=== PATIENT | female | born 1995 | race Caucasian/White ===

== ENCOUNTER 2025-04-30 20:04 | Emergency (ER) | payer OTHER ==
[~2025-04-30] VITALS: Ht 154.9 cm; Wt 69.0 kg
[2025-04-30 20:08] VITALS: TEMP 97.7
[2025-04-30 20:26] LABS: MEAN PLATELET VOLUME 7.3 FL (7.4-10.4); RED CELL DISTRIBUTION WIDTH 12.5 % (11.5-14.5)
--- NOTE | 2025-04-30 20:46 | Physician Documentation ---
History of Present Illness ~ Chief Complaint: Anxiety Stated Complaint: MULTIPLE ISSUES Time Seen by MD: 20:21 OK to notify your PCP?: Yes Source: patient, RN/MD, RN notes reviewed, old records Mode of Arrival: POV Exam Limitations: no limitations HPI 30 year old female with history of bipolar disorder seen in bed 14 presents to the emergency department for complaints of a caffeine overdose. She states that she has consumed 1000mg of caffeine in the past 24 hours. She states that she is addicted and her last drink was an hour prior to her arrival today. She states she is having palpitations, muscle spasms, and dizziness as well as disorganized thoughts. She states that [employer] told her that she was suffering from caffeine exposure. Medication Reconciliation Allergies: Coded Allergies: No Known Allergies (Unverified , 04/30/25) Past Medical History Past Medical History: Fibromyalgia, Bipolar Past Surgical History: noncontributory, gastric bypass, other Smoking Status: Never smoker Review of Systems All Other Systems at this time: Reviewed and Negative ROS As stated above in the HPI, otherwise all systems are reviewed and negative. Physical Exam Vital Signs: RN Vital Signs have been reviewed: Yes, Temperature: 97.7, Source: Temporal, Heart Rate: 69, Respiratory Rate: 16, BP: 139/80, Pulse Oximetry: 100, Weight: 69.000 Oxygen Flow Rate: 0 Pulse Oximetry Reflects: adequate oxygenation Physical Exam General: The patient is well developed, well nourished, nontoxic appearing and is in no acute distress. Skin: [place], warm and dry with no rashes. HEENT: Head was normocephalic and atraumatic. Eyes - pupils equal, round, reactive to light and accommodation. Extraocular movements were intact. Conjunctivae were nonicteric. Ears - bilateral tympanic membranes were normal. The mouth and oropharynx were clear with moist mucous membranes. There were no pharyngeal exudates or erythema. Neck: Supple and nontender. There was no jugular venous distention, lymphadenopathy, thyromegaly or masses. Chest: Clear to auscultation bilaterally without wheezes, rales or rhonchi. No accessory muscle use. No dullness to percussion. Heart: Rate regular and rhythmic. S1, S2. No murmurs. Palpation of the chest wall was normal. No rubs or thrills. Abdomen: Soft, nontender and nondistended. Positive bowel sounds. No guarding or rebound. No hepatosplenomegaly or palpable masses. Extremities: No cyanosis, clubbing or edema. The patient moves all extremities. Pulses were equal and symmetric. Neurologic: Cranial nerves II-XII were intact. Sensation was intact to light touch throughout. Motor strength was 5/5 in all four extremities. Deep tendon reflexes were intact in both upper and lower extremities. Psychologic: The patient was oriented to person, place and time. The patient demonstrated appropriate judgement and insight. Progress Results/Orders Reviewed/noted all lab results: Yes Results/Orders Orders - COLBY RAYMOND MD Chest,Single View (04/30/25 20:44) Monitor (04/30/25 20:15) Saline Lock (04/30/25 20:15) Oxygen (04/30/25 20:15) Hs Troponin I W Calculations (04/30/25 22:15) Hs Troponin I W Calculations (04/30/25 23:15) Completed Orders - COLBY RAYMOND MD Chest,Single View (04/30/25 20:44) Cbc/Diff (04/30/25 20:15) BMP (04/30/25 20:15) PBNP (04/30/25 20:15) Electrocardiogram (04/30/25 20:15) Hs Troponin I W Calculations (04/30/25 20:15) Drug Screen, Urine (04/30/25 20:25) Normal Saline 1000ml (0.9% Sodium Chlori (04/30/25 20:45) MG (04/30/25 20:21) Vital Signs 04/30/25 04/30/25 04/30/25 04/30/25 20:08 21:39 21:46 23:13 Temp 97.7 Pulse 69 86 58 Resp 16 12 16 18 B/P (MAP) 139/80 110/83 (92) 129/84 Pulse Ox 100 100 100 O2 Flow Rate 0 Laboratory Tests Test 04/30/25 20:21 04/30/25 21:16 White Blood Count 8.1 Red Blood Count 4.17 L Hemoglobin 13.4 Hematocrit 39.2 Mean Corpuscular Volume 94.0 Mean Corpuscular Hemoglobin 32.0 H Mean Corpuscular Hemoglobin Concent 34.1 Red Cell Distribution Width 12.5 Platelet Count 246 Mean Platelet Volume 7.3 L Neutrophils (%) (Auto) 48.8 Lymphocytes (%) (Auto) 39.1 Monocytes (%) (Auto) 8.0 Eosinophils (%) (Auto) 3.6 Basophils (%) (Auto) 0.5 Neutrophils # (Auto) 3.9 Lymphocytes # (Auto) 3.2 Monocytes # (Auto) 0.6 Eosinophils # (Auto) 0.3 Basophils # (Auto) 0.0 CBC Comment Sodium Level 136 Potassium Level 3.8 Chloride Level 102 Carbon Dioxide Level 27.3 Anion Gap 7 L Blood Urea Nitrogen 10 Creatinine 0.87 Estimated GFR/1.73 m2 76 BUN/Creatinine Ratio 11.5 Glucose Level 99 Calcium Level 8.6 Magnesium Level 2.2 Troponin I High Sensitivity < 4 L Troponin I High Sens Percent Delta Troponin I Hi Sens Absolute Change Pro-B-Type Natriuretic Peptide 37 Albumin 4.1 Chemistry Comments Urine Opiates Screen Negative Urine Methadone Screen Negative Urine Fentanyl Screen Negative Urine Barbiturates Screen Negative Urine Phencyclidine Screen Negative Urine Amphetamines Screen Negative Urine Benzodiazepines Screen Negative Urine Cocaine Screen Negative Urine Cannabinoids Screen Negative Drug Screen Comment Re-Evaluation Re-Evaluation : Re-Evaluation: Improved Progress This pleasant 30-year-old overdosed with caffeine is having palpitations called poison control was now here for evaluation. Patient although complaining of palpitations have had no signs of palpitations in the ER. She looks quite comfortable. She was placed on a monitor and observed for 4 hours. Laboratory work was obtained CBC is within normal limits chemistry also within normal limits with a negative troponin. Tox screen is negative. Patient's has been doing well she received a well fluids remains comfortable with normal vitals. Ultimately patient was discharged home and encouraged to decrease her caffeine consumption. She appears well at time of discharge as well as at time of initial presentation. Continuous campus monitor interpretation shows normal sinus rhythm heart rate 70s, no ectopy, normal, my interpretation. Pulse oximetry monitor interpretation shows normal oxygenation at 100% room air, normal, my interpretation. EKG/XRAY/CT/US/VASC/MRI EKG : Additional Comment 2020 EDME Raymond interpreted EKG to reveal sinus rhythm at a rate of 75bpm with a Qtc of 467. Patient has normal axis with good R wave progression. Chest X-Ray : Additional Comments CHEST RADIOGRAPH Indication: CP Technique: Single frontal view of the chest was obtained Comparison: None FINDINGS: Lines and Tubes: None Lungs: No focal consolidation. Pleura: No effusion. No pneumothorax. Cardiomediastinal contours: Unremarkable Bones: No acute osseous abnormality. IMPRESSION: No acute cardiopulmonary disease. Electronically Signed by:RODDY SMITH MD Date & Time: 04/30/252050 Medical Decision Making Additional info obtained from: old records Differential Dx:Considerations: Include: anemia, dehydration, dysrhythmia, electrolyte imbalance, other Departure Time of Disposition: 22:56 Disposition: 01 HOME / SELF CARE / HOMELESS Impression: Primary Impression: Caffeine overdose Qualified Codes: T43.614A - Poisoning by caffeine, undetermined, initial encounter Additional Impression: Palpitations Condition: Stable Discharge Instructions: Palpitations, [id number] Referrals: NO PRIMARY CARE PROVIDER (PCP) Education Educated: Patient, Family Educated regarding: diagnosis, treatment, prognosis Signature Scribe Signature: Scribed for Colby Raymond MD by Navjot Mercado . 04/30/25 21:03 Attestation: The note accurately reflects work and decisions made by me.Colby Raymond MD 04/30/25 20:46 COLBY RAYMOND MD Apr 30, 2025 20:46 NAVJOT JONES Apr 30, 2025 20:53
[2025-04-30 20:49] LABS: CREATININE 0.87 MG/DL (0.40-0.90); PRO BRAIN NATRIURETIC PEPTIDE 37 PG/ML (0-125); TOTAL CARBON DIOXIDE 27.3 MMOL/L (24-32); eCRCL 71 ML/MIN; eGFR 76 ML/MIN
--- NOTE | 2025-04-30 20:54 | RADIOLOGY REPORT ---
CHEST RADIOGRAPH Indication: CP Technique: Single frontal view of the chest was obtained Comparison: None FINDINGS: Lines and Tubes: None Lungs: No focal consolidation. Pleura: No effusion. No pneumothorax. Cardiomediastinal contours: Unremarkable Bones: No acute osseous abnormality. IMPRESSION: No acute cardiopulmonary disease.
[2025-04-30] MEDS: normal saline 1000ML IV soln IVB ONE (21:38)
[2025-04-30 22:03] LABS: URINE AMPHETAMINE SCREEN NEGATIVE (Neg); URINE BARBITUATE SCREEN NEGATIVE (Neg); URINE BENZODIAZEPINES SCREEN NEGATIVE (Neg); URINE CANNABINOID SCREEN NEGATIVE (Neg); URINE COCAINE SCREEN NEGATIVE (Neg); URINE METHADONE SCREEN NEGATIVE (Neg); URINE OPIATE SCREEN NEGATIVE (Neg); URINE PHENCYCLIDINE SCREEN NEGATIVE (Neg)
[2025-04-30 23:13] VITALS: BP 129/84; PULSE 58; RESP 18; O2SAT 100
--- NOTE | 2025-05-01 06:22 | ELECTROCARDIOGRAPH REPORT ---
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 Colby Oh Measurements Intervals [place] Rate: 75 P: 51 MT: 152 QRS: 35 QRSD: 73 T: 0 QT: 418 QTc: 467 Interpretive Statements Sinus rhythm Probable left atrial enlargement Borderline T abnormalities, inferior leads Electronically Signed On 05-01-2025 6:57:[address] Colby Oh Please click the below link to view image of tracing.
== END 2025-04-30 23:16 | disposition home or self-care (01) ==
LOC: ER 20:05
DX: T43.611A Poisoning by caffeine, accidental (unintentional), initial encounter (principal); R00.2 Palpitations; M79.7 Fibromyalgia; F31.9 Bipolar disorder, unspecified; F41.9 Anxiety disorder, unspecified; Y92.89 Other specified places as the place of occurrence of the external cause
CPT/HCPCS: 36415; 71045; 80048; 80305; 83735; 83880; 84484; 85025; 93005; 99285; J7030